=== PATIENT | female | born 1965 | race Caucasian/White ===

== ENCOUNTER 2022-02-27 19:07 | Observation (INO) | payer BC ==
[2022-02-27 20:15] LABS: Glucose,Whole Blood 211 mg/dL (70-110)
--- NOTE | 2022-02-27 20:25 | ED ---
General Adult HPI - General Chief complaint: Chest Pain Stated complaint: Chest Pain Time Seen by Provider: 02/27/22 19:08 Source: patient, EMS, RN notes reviewed, old records reviewed Mode of arrival: EMS Limitations: no limitations - History of Present Illness Initial comments: 56-year-old female presenting for evaluation of chest pain. Pain began after consuming edible marijuana. Patient was brought in by paramedics for evaluation of chest pain and concern for ST segment changes on EKG. She had some associated nausea. The pain did not radiate. She has a family history of coronary artery disease. She additionally is currently being treated for both hypertension and diabetes. - Related Data Home Medications Medication Instructions Recorded Confirmed Cholecalciferol [Vitamin D3 (25 50 mcg PO DAILY 02/27/22 02/27/22 Mcg = 1000 Iu)] Ferrous Sulfate [Feosol] 325 mg PO DAILY 02/27/22 02/27/22 Insulin Aspart [NovoLOG Flexpen] 1 - 20 units SQ AC-TID PRN 02/27/22 02/27/22 Insulin Degludec [Tresiba 20 - 22 units SQ DAILY 02/27/22 02/27/22 Flextouch U-100 Pen] L.acidoph,Paracasei, B.lactis 1 cap PO DAILY 02/27/22 02/27/22 [Probiotic] Magnesium 250 mg PO HS 02/27/22 02/27/22 Multivitamins, Thera [Multivitamin 1 tab PO DAILY 02/27/22 02/27/22 (formulary)] Pantoprazole Sodium 20 mg PO BID 02/27/22 02/27/22 Rosuvastatin [Crestor] 10 mg PO HS 02/27/22 02/27/22 Selenium 100 mcg PO DAILY 02/27/22 02/27/22 lisinopriL [Zestril] 10 mg PO HS 02/27/22 02/27/22 Allergies Allergy/AdvReac Type Severity Reaction Status Date / Time dexamethasone [From Maxitrol] Allergy EYE Verified 02/27/22 21:06 SWELLING neomycin [From Maxitrol] Allergy EYE Verified 02/27/22 21:06 SWELLING omeprazole [From Prilosec] Allergy BURNING Verified 02/27/22 21:06 IN/OF MOUTH/TONGUE polymyxin B [From Maxitrol] Allergy EYE Verified 02/27/22 21:06 SWELLING vancomycin Allergy SEVERE Verified 02/27/22 21:06 ITCHING metoclopramide [From Reglan] AdvReac DEPRESSION Verified 02/27/22 21:06 Review of Systems ROS Statement: Those systems with pertinent positive or pertinent negative responses have been documented in the HPI. ROS Other: All systems not noted in ROS Statement are negative. Past Medical History Past Medical History: Diabetes Mellitus, Hyperlipidemia, Hypertension Additional Past Medical History / Comment(s): Sepsis. History of Any Multi-Drug Resistant Organisms: None Reported Additional Past Surgical History / Comment(s): abd plasty and breast deduction surgery Oct 20 Past Psychological History: Depression, PTSD Smoking Status: Never smoker Past Alcohol Use History: None Reported Past Drug Use History: Marijuana General Exam Limitations: no limitations General appearance: alert, in no apparent distress, appears intoxicated Head exam: Present: atraumatic, normocephalic Eye exam: Present: normal appearance, PERRL ENT exam: Present: normal exam Neck exam: Present: normal inspection. Absent: tenderness, meningismus Respiratory exam: Present: normal lung sounds bilaterally. Absent: respiratory distress, wheezes Cardiovascular Exam: Present: regular rate, normal rhythm GI/Abdominal exam: Present: soft. Absent: distended, tenderness, guarding Extremities exam: Present: normal inspection, normal capillary refill. Absent: pedal edema, calf tenderness Neurological exam: Present: alert, CN II-XII intact. Absent: motor sensory deficit Psychiatric exam: Present: flat affect Course Vital Signs 02/27/22 02/27/22 19:09 19:19 Temperature 97.6 F Pulse Rate 97 Pulse Rate [ 92 Bilateral Supine Manager Of Training And Development] Respiratory 16 Rate Blood Pressure 134/88 - Reevaluation(s) Reevaluation #1: 02/27/221919 EKG Findings - EKG Comments: EKG Findings:: EKG obtained at 190, sinus rhythm with first-degree AV block, Q- wave and T-wave inversion in lead 3, there is KS depression in lead 2 and aVF, no ST segment elevation no reciprocal change. Rate of 99, KS interval 266, QRS duration 102, QTC 397. EKG repeated at 1937, unchanged, sinus rhythm with first-degree AV block rate of 96, KS interval 217, QRS duration 94, acute TC 405 Medical Decision Making - Medical Decision Making 56-year-old female with chest pain. This did begin shortly after using marijuana. Patient is high risk she was brought in by paramedics with concern for ST segment elevation however this appears to be more consistent with a KS depression in lead 2. There is no reciprocal change. There is a Q wave in lead 3. She has stable vitals at the time of initial evaluation. Chest x-ray is clear. CBC pending. Normal CMP, negative initial troponin. Patient had been given aspirin by paramedics prior to arrival. She will be observed overnight with serial cardiac enzymes. Case discussed both with the coil winder hand Dr. Cordova, and with Dr. Hammond who will admit. - Lab Data Result diagrams: 02/27/22 19:20 Lab Results 02/27/22 02/27/22 02/27/22 Range/Units 19:20 19:20 19:20 PT 10.0 (9.0-12.0) sec INR 0.9 (<1.2) APTT 22.4 (22.0-30.0) sec Sodium 136 L (137-145) mmol/L Potassium 4.2 (3.5-5.1) mmol/L Chloride 105 (98-107) mmol/L Carbon Dioxide 22 (22-30) mmol/L Anion Gap 9 mmol/L BUN 14 (7-17) mg/dL Creatinine 0.75 (0.52-1.04) mg/dL Est GFR (CKD-EPI)AfAm >90 (>60 ml/min/1.73 sqM) Est GFR (CKD-EPI)NonAf 88 (>60 ml/min/1.73 sqM) Glucose 178 H (74-99) mg/dL POC Glucose (mg/dL) (70-110) mg/dL POC Glu Save All Operator ID Calcium 8.5 (8.4-10.2) mg/dL Magnesium 1.9 (1.6-2.3) mg/dL Total Bilirubin 0.2 (0.2-1.3) mg/dL AST 25 (14-36) U/L ALT 21 (4-34) U/L Alkaline Phosphatase 94 (38-126) U/L Troponin I <0.012 (0.000-0.034) ng/mL Total Protein 6.5 (6.3-8.2) g/dL Albumin 3.8 (3.5-5.0) g/dL 02/27/22 Range/Units 20:13 PT (9.0-12.0) sec INR (<1.2) APTT (22.0-30.0) sec Sodium (137-145) mmol/L Potassium (3.5-5.1) mmol/L Chloride (98-107) mmol/L Carbon Dioxide (22-30) mmol/L Anion Gap mmol/L BUN (7-17) mg/dL Creatinine (0.52-1.04) mg/dL Est GFR (CKD-EPI)AfAm (>60 ml/min/1.73 sqM) Est GFR (CKD-EPI)NonAf (>60 ml/min/1.73 sqM) Glucose (74-99) mg/dL POC Glucose (mg/dL) 211 H (70-110) mg/dL POC Glu Save All Operator ID Kimberly Ware Calcium (8.4-10.2) mg/dL Magnesium (1.6-2.3) mg/dL Total Bilirubin (0.2-1.3) mg/dL AST (14-36) U/L ALT (4-34) U/L Alkaline Phosphatase (38-126) U/L Troponin I (0.000-0.034) ng/mL Total Protein (6.3-8.2) g/dL Albumin (3.5-5.0) g/dL Disposition Clinical Impression: Chest pain Disposition: ADMITTED IP TO THIS [facility] Condition: Stable Is patient prescribed a controlled substance at d/c from ED?: No Referrals: Nonstaff,Physician [Primary Care Provider] - 1-2 days Time of Disposition: 21:14
--- NOTE | 2022-02-27 20:26 | XR ---
EXAMINATION TYPE: XR chest 1V portable DATE OF EXAM: 02/27/2022 COMPARISON: NONE HISTORY: Chest pain TECHNIQUE: Single view FINDINGS: Heart is normal. Lungs are clear of infiltrate. No heart failure. There are no hilar masses . Costophrenic angles are clear. There are chest leads. IMPRESSION: No active cardiopulmonary disease. Normal heart
[2022-02-27 20:57] LABS: ALT 21 U/L (4-34); AST 25 U/L (14-36); African American GFR (CKD) >90 (>60 ml/min/1.73 sqM); Albumin 3.8 g/dL (3.5-5.0); Alkaline Phosphatase 94 U/L (38-126); Anion Gap 9 mmol/L; Blood Urea Nitrogen 14 mg/dL (7-17); Calcium 8.5 mg/dL (8.4-10.2); Carbon Dioxide 22 mmol/L (22-30); Chloride 105 mmol/L (98-107); Glucose 178 mg/dL (74-99); Magnesium 1.9 mg/dL (1.6-2.3); Non-African American GFR(CKD) 88 (>60 ml/min/1.73 sqM); Potassium 4.2 mmol/L (3.5-5.1); Sodium 136 mmol/L (137-145); Total Bilirubin 0.2 mg/dL (0.2-1.3); Total Protein 6.5 g/dL (6.3-8.2)
[2022-02-27] MEDS ORDERED: ACETAMINOPHEN TAB 325 MG TAB PO PRN (21:04)
[2022-02-27] MEDS ORDERED: NALOXONE 0.4 MG/ML 1 ML VIAL IV PRN (21:04)
[2022-02-27] MEDS ORDERED: ONDANSETRON 4 MG/2 ML VIAL IVP PRN (21:04)
[2022-02-27 21:08] LABS: INR 0.9 (<1.2); Partial Thromboplastin Time 22.4 sec (22.0-30.0)
[2022-02-27 21:32] LABS: Basophils # (A) 0.1 k/uL (0-0.2); Basophils % (A) 1 %; Eosinophils # (A) 0.1 k/uL (0-0.7); Eosinophils % (A) 2 %; HCT 40.8 % (34.0-46.0); HGB 13.4 gm/dL (11.4-16.0); Lymphocytes # (A) 3.1 k/uL (1.0-4.8); Lymphocytes % (A) 43 %; MCH 30.8 pg (25.0-35.0); MCHC 32.9 g/dL (31.0-37.0); MCV 93.6 fL (80.0-100.0); Mean Platelet Volume 7.8; Monocytes # (A) 0.4 k/uL (0-1.0); Monocytes % (A) 6 %; Neutrophils # (A) 3.4 k/uL (1.3-7.7); Neutrophils % (A) 46 %; Platelet Count 247 k/uL (150-450); RBC 4.35 m/uL (3.80-5.40); RDW 12.8 % (11.5-15.5); WBC 7.3 k/uL (3.8-10.6)
[2022-02-27 23:56] VITALS: RESP 18
--- NOTE | 2022-02-28 02:07 | P.HPIM ---
History of Present Illness H&P Date: 02/27/22 Chief Complaint: atypical chest pain 56 year old female with Hypertension , Hyperlipidemia , DM patient comes in with central crushing chest pain , 8/10 in severity , feeling nauseated, and profusely sweating, with heart racing. she denies any cardiac history and had a negative left heart cath 7 months ago done at [facility] she denies any chest pain at baseline, but does get exertional dyspnea possibly due to deconditioning from having wound infection and sepsis that took months to heal. she admits to trying home made edible marijuana , after about 20-30 min pain started . and EMS notified. initially EKG was suspicious , but that was clarified with cardiology relationship counselor, so phlebotomist lab assistant was not activated. trops negative, EKG otherwise showing 1st degree AV block no recent travel, or hospital stay , no history of blood clots , patient recently (1 week ago) went on a hiking trip , which she tolerated Review of Systems Pertinent positives as noted in HPI. All other systems were reviewed and are negative Past Medical History Past Medical History: Diabetes Mellitus, Hyperlipidemia, Hypertension Additional Past Medical History / Comment(s): Sepsis. History of Any Multi-Drug Resistant Organisms: None Reported Additional Past Surgical History / Comment(s): abd plasty and breast deduction surgery Jun 24 Past Psychological History: Depression, PTSD Smoking Status: Never smoker Past Alcohol Use History: None Reported Past Drug Use History: Marijuana - Past Family History family Family Medical History: Coronary Artery Disease (CAD) Medications and Allergies Home Medications Medication Instructions Recorded Confirmed Type Cholecalciferol [Vitamin D3 (25 50 mcg PO DAILY 02/27/22 02/27/22 History Mcg = 1000 Iu)] Ferrous Sulfate [Feosol] 325 mg PO DAILY 02/27/22 02/27/22 History Insulin Aspart [NovoLOG Flexpen] 1 - 20 units SQ AC-TID PRN 02/27/22 02/27/22 History Insulin Degludec [Tresiba 20 - 22 units SQ DAILY 02/27/22 02/27/22 History Flextouch U-100 Pen] L.acidoph,Paracasei, B.lactis 1 cap PO DAILY 02/27/22 02/27/22 History [Probiotic] Magnesium 250 mg PO HS 02/27/22 02/27/22 History Multivitamins, Thera [Multivitamin 1 tab PO DAILY 02/27/22 02/27/22 History (formulary)] Pantoprazole Sodium 20 mg PO BID 02/27/22 02/27/22 History Rosuvastatin [Crestor] 10 mg PO HS 02/27/22 02/27/22 History Selenium 100 mcg PO DAILY 02/27/22 02/27/22 History lisinopriL [Zestril] 10 mg PO HS 02/27/22 02/27/22 History Allergies Allergy/AdvReac Type Severity Reaction Status Date / Time dexamethasone [From Maxitrol] Allergy EYE Verified 02/27/22 21:06 SWELLING neomycin [From Maxitrol] Allergy EYE Verified 02/27/22 21:06 SWELLING omeprazole [From Prilosec] Allergy BURNING Verified 02/27/22 21:06 IN/OF MOUTH/TONGUE polymyxin B [From Maxitrol] Allergy EYE Verified 02/27/22 21:06 SWELLING vancomycin Allergy SEVERE Verified 02/27/22 21:06 ITCHING metoclopramide [From Reglan] AdvReac DEPRESSION Verified 02/27/22 21:06 Physical Exam Vitals: Vital Signs Temp Pulse Pulse Resp BP 02/27/22 19:19 92 02/27/22 19:09 97.6 F 97 16 134/88 Intake and Output 02/27/22 02/27/22 02/27/22 06:59 14:59 22:59 Other: Weight 106 kg Constitutional: No acute distress, conversant, pleasant Eyes: Anicteric sclerae, moist conjunctiva, Pupils equal round reactive to light ENMT: NC/AT Oropharynx clear, no erythema, or exudates Neck: Supple, FROM, no masses, or JVD No carotid bruits No thyromegaly Lungs: Clear to auscultation Clear to percussion Normal respiratory effort, no accessory muscle use Cardiovascular: Heart regular in rate and rhythm, No murmurs, gallops, or rubs No peripheral edema Abdominal: Soft Nontender, no guarding, rebound or rigidity Abdomen moving with respiration Normoactive bowel sounds No hepatomegaly, No splenomegaly No palpable mass No abdominal wall hernia noted Skin: Normal temperature, tone, texture, turgor No induration No subcutaneous nodules No rash, lesions No ulcers Extremities: No digital cyanosis No clubbing Pedal pulses intact and symmetrical Radial pulses intact and symmetrical No calf tenderness Psychiatric: Alert and oriented to person, place and time Appropriate affect fair judgement Neuro Muscles Strength 5/5 in all 4 extremities Sensation to light touch grossly present throughout Cranial nerves II-XII grossly intact No focal sensory deficits Lymphatics: no palpable cervical or supraclavicular , or inguinal lymph nodes Results CBC & Chem 7: 02/27/22 19:20 02/27/22 19:20 Labs: Abnormal Lab Results - Last 24 Hours (Table) 02/27/22 02/27/22 Range/Units 19:20 20:13 Sodium 136 L (137-145) mmol/L Glucose 178 H (74-99) mg/dL POC Glucose (mg/dL) 211 H (70-110) mg/dL Assessment and Plan Assessment: atypical chest pain rule out ACS EKG 1st degree av block , discussed with cardio CXR no acute pathology trops negative X2 monitoring coordinator monitor vital signs ASA, statin cardiology consult negative left heart cath 7 months ago at [facility] pain control chronic conditions hypertension , resume home meds DM , insulin sliding scale DVT PPX heparin sc tid full code
[2022-02-28 07:25] LABS: Glucose,Whole Blood 159 mg/dL (70-110)
[2022-02-28] MEDS ORDERED: INSULIN ASPART (NovoLOG) 100 UNIT/ML VIAL SQ SCH (07:30)
[2022-02-28] MEDS ORDERED: HEPARIN SODIUM,PORCINE/PF 5,000 UNIT/0.5 ML SYRINGE SQ SCH (08:00)
[2022-02-28 08:04] VITALS: BP 115/66; PULSE 89; TEMP 98.4
[2022-02-28] MEDS ORDERED: FERROUS SULFATE 325 MG TAB PO SCH (09:00)
[2022-02-28] MEDS ORDERED: PANTOPRAZOLE 40 MG TABLET PO SCH (09:00)
[2022-02-28] MEDS ORDERED: ASPIRIN 325 MG TAB PO SCH (09:00)
--- NOTE | 2022-02-28 11:14 | P.CRDCN ---
History of Present Illness Consult date: 02/28/22 History of present illness: This is a 56-year-old female with history of hypertension, hyperlipidemia, diabetes and apparently history of some sepsis. She claims that she had a cardiac evaluation the past including cardiac catheterization. She was told not to have any significant obstructive disease. Yesterday she tried a homemade marijuana yesterday and subsequently started having some central sharp chest discomfort. Subsequently, paramedics were called and patient was brought to the emergency room. EKGs by paramedics was size to possible inferior wall TN. C areful review of the EKGs did show some Q waves in inferior leads with nonspecific ST-T changes. Lab was not activated. Patient is admitted to the hospital and serial troponins were negative. Patient is feeling better. She is requesting to go home because of negative cardiac cath recently and negative enzymes. I suggested that patient to increase her activity and she is free of any chest pain, she could be discharged home. She expresses an interest to go back to her biological chemist and have any further evaluation that is necessary. Review of Systems As per the chart Past Medical History Past Medical History: Diabetes Mellitus, Hyperlipidemia, Hypertension Additional Past Medical History / Comment(s): Sepsis. History of Any Multi-Drug Resistant Organisms: None Reported Additional Past Surgical History / Comment(s): abd plasty and breast deduction surgery Jun 24 Past Psychological History: Depression, PTSD Smoking Status: Never smoker Past Alcohol Use History: None Reported Past Drug Use History: Marijuana - Past Family History family Family Medical History: Coronary Artery Disease (CAD) Medications and Allergies Home Medications Medication Instructions Recorded Confirmed Type Cholecalciferol [Vitamin D3 (25 50 mcg PO DAILY 02/27/22 02/27/22 History Mcg = 1000 Iu)] Ferrous Sulfate [Feosol] 325 mg PO DAILY 02/27/22 02/27/22 History Insulin Aspart [NovoLOG Flexpen] 1 - 20 units SQ AC-TID PRN 02/27/22 02/27/22 History Insulin Degludec [Tresiba 20 - 22 units SQ DAILY 02/27/22 02/27/22 History Flextouch U-100 Pen] L.acidoph,Paracasei, B.lactis 1 cap PO DAILY 02/27/22 02/27/22 History [Probiotic] Magnesium 250 mg PO HS 02/27/22 02/27/22 History Multivitamins, Thera [Multivitamin 1 tab PO DAILY 02/27/22 02/27/22 History (formulary)] Pantoprazole Sodium 20 mg PO BID 02/27/22 02/27/22 History Rosuvastatin [Crestor] 10 mg PO HS 02/27/22 02/27/22 History Selenium 100 mcg PO DAILY 02/27/22 02/27/22 History lisinopriL [Zestril] 10 mg PO HS 02/27/22 02/27/22 History Allergies Allergy/AdvReac Type Severity Reaction Status Date / Time dexamethasone [From Maxitrol] Allergy EYE Verified 02/27/22 21:06 SWELLING neomycin [From Maxitrol] Allergy EYE Verified 02/27/22 21:06 SWELLING omeprazole [From Prilosec] Allergy BURNING Verified 02/27/22 21:06 IN/OF MOUTH/TONGUE polymyxin B [From Maxitrol] Allergy EYE Verified 02/27/22 21:06 SWELLING vancomycin Allergy SEVERE Verified 02/27/22 21:06 ITCHING metoclopramide [From Reglan] AdvReac DEPRESSION Verified 02/27/22 21:06 Physical Exam Vitals: Vital Signs Temp Pulse Pulse Pulse Resp BP BP 02/28/22 07:00 98.4 F 89 18 115/66 02/28/22 01:55 97.6 F 84 18 02/27/22 23:40 98.3 F 89 18 02/27/22 22:19 100 16 127/77 02/27/22 19:19 92 02/27/22 19:09 97.6 F 97 16 134/88 BP Pulse Ox 02/28/22 07:00 98 02/28/22 01:55 100/68 95 02/27/22 23:40 115/79 97 02/27/22 22:19 100 02/27/22 19:19 02/27/22 19:09 Intake and Output 02/27/22 02/28/22 02/28/22 22:59 06:59 14:59 Other: # Voids 1 Weight 106 kg GENERAL EXAM: Patient is alert and oriented and doesn't appear to be in any acute distress HEENT: Normocephalic. Normal reaction of pupils, equal size, normal range of extraocular motion. No erythema or exudates in the throat. NECK: No masses, no nuchal rigidity. CHEST: No chest wall deformity. LUNGS: Equal air entry with no crackles or wheeze. HEART: S1 and S2 normal with no audible mumurs or gallops. Regular rhythm, femorals equal on both sides.. ABDOMEN: No hepatosplenomegaly, normal bowel sounds, no guarding or rigidity. SKIN: No rashes CENTRAL NERVOUS SYSTEM: No focal deficits. EXTREMITIES: No cyanosis, clubbing or edema. Results 02/27/22 19:20 02/27/22 19:20 Cardiac Enzymes 02/27/22 02/27/22 02/27/22 Range/Units 19:20 19:20 23:01 AST 25 (14-36) U/L Troponin I <0.012 <0.012 (0.000-0.034) ng/mL 02/28/22 Range/Units 01:02 AST (14-36) U/L Troponin I <0.012 (0.000-0.034) ng/mL Coagulation 02/27/22 Range/Units 19:20 PT 10.0 (9.0-12.0) sec APTT 22.4 (22.0-30.0) sec CBC 02/27/22 Range/Units 19:20 WBC 7.3 (3.8-10.6) k/uL RBC 4.35 (3.80-5.40) m/uL Hgb 13.4 (11.4-16.0) gm/dL Hct 40.8 (34.0-46.0) % Plt Count 247 (150-450) k/uL Comprehensive Metabolic Panel 02/27/22 Range/Units 19:20 Sodium 136 L (137-145) mmol/L Potassium 4.2 (3.5-5.1) mmol/L Chloride 105 (98-107) mmol/L Carbon Dioxide 22 (22-30) mmol/L BUN 14 (7-17) mg/dL Creatinine 0.75 (0.52-1.04) mg/dL Glucose 178 H (74-99) mg/dL Calcium 8.5 (8.4-10.2) mg/dL AST 25 (14-36) U/L ALT 21 (4-34) U/L Alkaline Phosphatase 94 (38-126) U/L Total Protein 6.5 (6.3-8.2) g/dL Albumin 3.8 (3.5-5.0) g/dL Current Medications Generic Name Dose Route Start Last Admin Trade Name Freq PRN Reason Stop Dose Admin Acetaminophen 650 mg 02/27/22 21:04 Acetaminophen Tab 325 Mg Tab PO Q6HR PRN Mild Pain or Fever > 100.5 Aspirin 325 mg 02/28/22 09:00 02/28/22 07:53 Aspirin 325 Mg Tab PO 325 mg DAILY TERRI Administration Atorvastatin Calcium 20 mg 02/28/22 21:00 Atorvastatin 20 Mg Tab PO HS TERRI Ferrous Sulfate 325 mg 02/28/22 09:00 02/28/22 07:53 Ferrous Sulfate 325 Mg Tab PO 325 mg DAILY TERRI Administration Heparin Sodium (Porcine) 5,000 unit 02/28/22 08:00 02/28/22 07:53 Heparin Sodium,Porcine/Pf 5,000 Unit/0.5 Ml Syringe SQ 5,000 unit Q8HR TERRI Administration Insulin Aspart 0 unit 02/28/22 07:30 02/28/22 07:56 Insulin Aspart (Novolog) 100 Unit/Ml Vial SQ Not Given ACHS [facility] Protocol Lisinopril 10 mg 02/28/22 21:00 Lisinopril 10 Mg Tab PO HS TERRI Naloxone HCl 0.2 mg 02/27/22 21:04 Naloxone 0.4 Mg/Ml 1 Ml Vial IV Q2M PRN Opioid Reversal Ondansetron HCl 4 mg 02/27/22 21:04 Ondansetron 4 Mg/2 Ml Vial IVP Q8HR PRN Nausea And Vomiting Pantoprazole Sodium 40 mg 02/28/22 09:00 02/28/22 07:53 Pantoprazole 40 Mg Tablet PO 40 mg BID [facility] Administration Intake and Output 02/27/22 02/28/22 02/28/22 22:59 06:59 14:59 Other: # Voids 1 Weight 106 kg 02/27/22 19:20 02/27/22 19:20 EKG Interpretations (text) Sinus rhythm with small tears in the inferior leads with minimal ST-T changes Assessment and Plan (1) Hypercholesterolemia Current Visit: Yes Status: Acute Code(s): E78.00 - PURE HYPERCHOLESTEROLEMIA, UNSPECIFIED SNOMED Code(s): 65610709 (2) Chest pain Current Visit: Yes Status: Acute Code(s): R07.9 - CHEST PAIN, UNSPECIFIED SNOMED Code(s): 14267448 (3) Marijuana use Current Visit: Yes Status: Acute Code(s): F12.90 - CANNABIS USE, UNSPECIFIED, UNCOMPLICATED SNOMED Code(s): 688759447 Plan: Patient is stable. She wants to go home and have further evaluation by our own biological chemist. Patient could be discharged home
--- NOTE | 2022-02-28 14:39 | P.DS ---
Providers Date of admission: 02/27/22 21:04 Expected date of discharge: 02/28/22 Attending physician: Johnson Castaneda MD Consults: 02/27/22 21:04 Consult Physician Routine Consulting Provider: Sandeep Cordova Consult Reason/Comments: CP Do you want consulting provider notified?: Yes Primary care physician: Physician Nonstaff - Discharge Diagnosis(es) (1) Chest pain The patient's chest pain has resolved she had negative enzymes she was seen by cardiology and had a recent catheterization last year no need for further intervention. Status: Acute (2) Hypercholesterolemia Continue outpatient regimen Status: Acute (3) Marijuana use Status: Acute Patient Condition at Discharge: Stable Plan - Discharge Summary Discharge Rx Participant: No New Discharge Prescriptions: No Action Rosuvastatin [Crestor] 10 mg PO HS Pantoprazole Sodium 20 mg PO BID Magnesium 250 mg PO HS L.acidoph,Paracasei, B.lactis [Probiotic] 1 cap PO DAILY Cholecalciferol [Vitamin D3 (25 Mcg = 1000 Iu)] 50 mcg PO DAILY Ferrous Sulfate [Feosol] 325 mg PO DAILY Selenium 100 mcg PO DAILY Multivitamins, Thera [Multivitamin (formulary)] 1 tab PO DAILY Insulin Aspart [NovoLOG Flexpen] 1 - 20 units SQ AC-TID PRN PRN Reason: HIGH BLOOD SUGAR lisinopriL [Zestril] 10 mg PO HS Insulin Degludec [Tresiba Flextouch U-100 Pen] 20 - 22 units SQ DAILY Discharge Medication List Cholecalciferol [Vitamin D3 (25 Mcg = 1000 Iu)] 50 mcg PO DAILY 02/27/22 [History] Ferrous Sulfate [Feosol] 325 mg PO DAILY 02/27/22 [History] Insulin Aspart [NovoLOG Flexpen] 1 - 20 units SQ AC-TID PRN 02/27/22 [History] Insulin Degludec [Tresiba Flextouch U-100 Pen] 20 - 22 units SQ DAILY 02/27/22 [History] L.acidoph,Paracasei, B.lactis [Probiotic] 1 cap PO DAILY 02/27/22 [History] Magnesium 250 mg PO HS 02/27/22 [History] Multivitamins, Thera [Multivitamin (formulary)] 1 tab PO DAILY 02/27/22 [History] Pantoprazole Sodium 20 mg PO BID 02/27/22 [History] Rosuvastatin [Crestor] 10 mg PO HS 02/27/22 [History] Selenium 100 mcg PO DAILY 02/27/22 [History] lisinopriL [Zestril] 10 mg PO HS 02/27/22 [History] Follow up Appointment(s)/Referral(s): Nonstaff,Physician [Primary Care Provider] - 1-2 days Patient Instructions/Handouts: Chest Pain (DC) Activity/Diet/Wound Care/Special Instructions: activity as tolerated consistent carb diet as tolerated Discharge Disposition: HOME SELF-CARE
[2022-02-28] MEDS ORDERED: ATORVASTATIN 20 MG TAB PO SCH (21:00)
[2022-02-28] MEDS ORDERED: lisinopriL 10 MG TAB PO SCH (21:00)
== END 2022-02-28 11:53 | disposition home or self-care (01) ==
LOC: EC 19:07 → 6NMEDSUR 21:04
PROVIDERS: ADMIT Internal Medicine; ATTEND Internal Medicine
DX: R07.89 Other chest pain (principal); I44.0 Atrioventricular block, first degree; R11.0 Nausea; R00.0 Tachycardia, unspecified; R61 Generalized hyperhidrosis; E78.00 Pure hypercholesterolemia, unspecified; E11.9 Type 2 diabetes mellitus without complications; I10 Essential (primary) hypertension; E78.5 Hyperlipidemia, unspecified; F32.A Depression, unspecified; F43.10 Post-traumatic stress disorder, unspecified; Z79.4 Long term (current) use of insulin; Z79.899 Other long term (current) drug therapy; Z88.3 Allergy status to other anti-infective agents; Z88.8 Allergy status to other drugs, medicaments and biological substances; Z86.19 Personal history of other infectious and parasitic diseases; Z98.890 Other specified postprocedural states; Z82.49 Family history of ischemic heart disease and other diseases of the circulatory system
CPT/HCPCS: 96372; 99285; 36415; 80053; 83735; 84484 ×2; 85025; 85610; 85730; 71045; G0378 ×2; J1644